=== PATIENT | male | born 1945 | race Caucasian/White ===

== ENCOUNTER 2023-08-17 10:46 | Outpatient (CLI) | payer MEDICARE, OTHER, SELFPAY | END 2023-08-17 10:47 | disposition home or self-care (01) | PROVIDERS: PCP Family Medicine; Visit Provider Family Medicine | DX: E78.5 Hyperlipidemia, unspecified (principal); D64.9 Anemia, unspecified; Z13.1 Encounter for screening for diabetes mellitus | CPT/HCPCS: 80048; 80061 ==

== ENCOUNTER 2023-09-12 09:35 | Outpatient (CLI) | payer MEDICARE, OTHER, SELFPAY | END 2023-09-12 09:36 | disposition home or self-care (01) | LOC: NFLDREF 09-16 15:23 | PROVIDERS: PCP Family Medicine; Referring Provider Family Medicine; Visit Provider Internal Medicine Cardiovascular Disease | DX: I48.0 Paroxysmal atrial fibrillation (principal) | CPT/HCPCS: 80048 ==

== ENCOUNTER 2023-09-26 09:43 | Outpatient (CLI) | payer MEDICARE, OTHER, SELFPAY ==
--- NOTE | 2023-09-26 10:00 | CRLHL7_ITS ---
For Patients: As a result of the Century Cures Act, medical imaging exams and procedure reports are released immediately into your electronic medical record. You may view this report before your referring provider. If you have questions, please contact your health care provider. Indication: FOLLOW UP THORACIC AORTIC ANEURYSM Technique: Noncontrast CT chest Please note that all CT scans at this facility use dose modulation, iterative reconstruction, and/or weight-based dosing when appropriate to reduce radiation dose to as low as reasonably achievable. Comparison: 12/01/2020 Findings: Small layering stones in the gallbladder. Stable left adrenal adenoma. Hiatal hernia measures 9.4 cm. Atherosclerotic changes. No suspicious thyroid lesion. No enlarged lymph nodes. Chronic wedging lower thoracic spine. No acute fracture. Ascending aorta measures 4.2 cm, unchanged. No pericardial effusion. Interval development of tree-in-bud opacities in the posterior aspect right lower lobe. Impression: Stable size and morphology of the ascending aorta which measures up to 4.2 cm, as before. Interval development of mild infiltrate in the posterior right lower lobe. Please note that all CT scans at this facility use dose modulation, iterative reconstruction, and/or weight-based dosing when appropriate to reduce radiation dose to as low as reasonably achievable. Dictated by Buddy Shi MD @ 09/27/2023 12:37:37 PM (Electronically Signed)
== END 2023-09-26 09:44 | disposition home or self-care (01) ==
PROVIDERS: PCP Family Medicine; Visit Provider Family Medicine
DX: I77.810 Thoracic aortic ectasia (principal)
CPT/HCPCS: 71250

== ENCOUNTER 2024-02-21 11:56 | Outpatient (CLI) | payer MEDICARE, OTHER, SELFPAY ==
--- OUTSIDE RECORDS SUMMARY | 2024-02-21 12:00 | XMS_ITS | Clinical Summary ---
Author Name Unknown Organization [facility] Address [place], [place] [address] Care Team Providers Care Collar Cutter Name Role Phone Khari Gonzalez MD Primary Care Provider [phone] Allergies No known active allergies Medications Medication Sig Dispensed Refills Start Date End Date Status (u) ASPIRIN 81 MG TABS once a day ? 0 01/08/2005 Active FOLIC ACID 400 MCG ORAL TAB once a day ? 0 01/08/2005 Active LIPITOR 20 MG ORAL TAB once a day ? 0 01/08/2005 Active MULTIVITAMIN ORAL TAB .qd ? 0 01/08/2005 Active sotaloL (BETAPACE) 80 mg tabletIndications:P aroxysmal atrial fibrillation (HC) Take 1 Tablet (80 mg) by mouth every 12 hours. Due for cardiology appointment 09/14. please call to schedule. 180 Tablet 4 10/01/2022 Active apixaban (Eliquis) 5 mg tabletIndications:P aroxysmal atrial fibrillation (HC) Take 1 Tablet (5 mg) by mouth two times daily. Due for appointment in August, please call now to schedule. 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 Relation Name Status Comments Other Social History Tobacco Use Types Packs/Day Years Used Date Smoking Tobacco: Never Assessed Cigarettes Comments:Quit smokin Social Connections Answer Date Recorded Frequency of Communication with Friends and Fami ly Not on file 10/24/2021 Financial Resource Strain Answer Date R ecorded Difficulty of Paying Living Expenses Not on file 10/24/2021 Difficulty of Paying Living Expenses Not on file 10/24/2021 Sex and Gender Information Value Date Recorded Sex Assigned at Not on file Gender Identity Not on file Sexual Orientation Not on file Obstetrics History Last Filed Vital Signs Vital Sign Reading Time Taken Comments Blood Pressure - - Pulse 73 01/08/2005 12:00 AM SUPERVISOR GARMENT MANUFACTURING Temperature - - Respiratory Rate - - Oxygen Saturation 96% 01/08/2005 12: 00 AM SUPERVISOR GARMENT MANUFACTURING Inhaled Oxygen Concentration - - Weight 101.8 kg (224 lb 6.4 oz) 005 12:00 AM SUPERVISOR GARMENT MANUFACTURING Height 177.8 cm (5' 10) 01/08/2005 12: 00 AM SUPERVISOR GARMENT MANUFACTURING Body Mass Index 32.2 01/08/2005 12:00 AM SUPERVISOR GARMENT MANUFACTURING Plan of Treatment Health Maintenance Due Date Last Done Comments Tdap 1958 Depression screening for age 12+ 1959 BMI (ht and wt on same day) for age 18+ 1965 Hepatitis C screening for ag e 18-79 1965 Tetanus booster 1967 Zoster (shingles) series for age 50+ (1 of 2) 1997 Medicare Wellness for age 65+ 2012 Pneumococcal series for age 65+ (1 of 1 - PCV) 2012 Influenza for age 65+ 06/24/2024 COVID-19 vaccine series Completed 08/18/20, 11/06/2021, 01/06/2021, Additional history exists Care Teams Collar Cutter Relationship Specialty Start Date End Date Khari Gonzalez MD PCP - General Family Practice 03/25/21
== END 2024-02-21 11:57 | disposition home or self-care (01) ==
PROVIDERS: PCP Family Medicine; Visit Provider Family Medicine
DX: R06.09 Other forms of dyspnea (principal); D64.9 Anemia, unspecified
CPT/HCPCS: 80048; 82607; 84443

== ENCOUNTER 2024-03-05 10:00 | Outpatient (CLI) | payer MEDICARE, OTHER, SELFPAY ==
--- OUTSIDE RECORDS SUMMARY | 2024-03-05 10:05 | XMS_ITS | Clinical Summary ---
Author Name Unknown Organization [facility] Address [place], [place] [address] Care Team Providers Care Talent Acquisition Associate Name Role Phone Khari Gonzalez MD Primary Care Provider [phone] Allergies No known active allergies Medications Medication [...] - - Pulse 73 01/08/2005 12:00 AM COMPRESSION MOLDING MACHINE OPERATOR Temperature - - Respiratory Rate - - Oxygen Saturation 96% 01/08/2005 12: 00 AM COMPRESSION MOLDING MACHINE OPERATOR Inhaled Oxygen Concentration - - Weight 101.8 kg (224 lb 6.4 oz) 005 12:00 AM COMPRESSION MOLDING MACHINE OPERATOR Height 177.8 cm (5' 10) 01/08/2005 12: 00 AM COMPRESSION MOLDING MACHINE OPERATOR Body Mass Index 32.2 01/08/2005 12:00 AM COMPRESSION MOLDING MACHINE OPERATOR Plan of Treatment Health Maintenance Due Date [...] 11/06/2021, 01/06/2021, Additional history exists Care Teams Talent Acquisition Associate Relationship Specialty Start Date End Date Khari Gonzalez MD PCP - General Family Practice 03/25/21
== END 2024-03-05 10:01 | disposition home or self-care (01) ==
LOC: LKVREF 10:01
PROVIDERS: PCP Family Medicine; Visit Provider Family Medicine
DX: R60.0 Localized edema (principal)
CPT/HCPCS: 80048

== ENCOUNTER 2024-03-07 08:28 | Outpatient (CLI) | payer MEDICARE, OTHER, SELFPAY ==
--- OUTSIDE RECORDS SUMMARY | 2024-03-07 08:30 | XMS_ITS | Clinical Summary ---
Author Name Unknown Organization [facility] [employer] [facility] Address [place], [place] [address] Care Team Providers Care Baker Name Role Phone Khari Gonzalez MD Primary Care Provider [phone] Allergies No known active allergies Medications Medication [...] - - Pulse 73 01/08/2005 12:00 AM SOAP CHIPPER Temperature - - Respiratory Rate - - Oxygen Saturation 96% 01/08/2005 12: 00 AM SOAP CHIPPER Inhaled Oxygen Concentration - - Weight 101.8 kg (224 lb 6.4 oz) 005 12:00 AM SOAP CHIPPER Height 177.8 cm (5' 10) 01/08/2005 12: 00 AM SOAP CHIPPER Body Mass Index 32.2 01/08/2005 12:00 AM SOAP CHIPPER Plan of Treatment Upcoming Encounters Date Type Department Care Team (Late st Contact Info) Description 03/07/2024 9:00 AM CDT Ancillary Procedure [facility] [address] [place] [address] Health Maintenance Due Date Last Done Comments [...] 11/06/2021, 01/06/2021, Additional history exists Care Teams Baker Relationship Specialty Start Date End Date Khari Gonzalez MD PCP - General Family Practice 03/25/21
== END 2024-03-07 08:29 | disposition home or self-care (01) ==
LOC: RAD 08:29
PROVIDERS: PCP Family Medicine; Visit Provider Family Medicine
DX: R06.09 Other forms of dyspnea (principal); I51.7 Cardiomegaly
CPT/HCPCS: 93306

== ENCOUNTER 2024-05-25 09:50 | Outpatient (CLI) | payer MEDICARE, OTHER, SELFPAY ==
--- OUTSIDE RECORDS SUMMARY | 2024-05-28 08:42 | XMS_ITS | Clinical Summary ---
Author Organization [facility] Address [place], [place] [address] Care Team Providers Care Press Tender Name Role Phone Khari Reyes MD Primary Care Provider [phone] [phone] Allergies No known active allergies Medications Medication [...] L [place] 1988 HYPERLIPIDEMIA PATENT FORAMEN OVALE Encounters Date Type Department Care Team Description 05/07/2024 Orders Only [facility] [address] [place] [address] Mari Sandoval MD 1 scan: (1-Ord) ZIO REPORT 04/19/2024 10:30 AM CDT Office Visit [facility] [address] [place] [address] Mari Sandoval MD 03/07/2024 9:00 AM CDT Ancillary Procedure [facility] [address] [place] [address] 03/07/2024 Travel from Last 3 Months Family History Medical History Relation Name Comments [...] - - Pulse 73 01/08/2005 12:00 AM SPEAR FISHER Temperature - - Respiratory Rate - - Oxygen Saturation 96% 01/08/2005 12: 00 AM SPEAR FISHER Inhaled Oxygen Concentration - - Weight 101.8 kg (224 lb 6.4 oz) 005 12:00 AM SPEAR FISHER Height 177.8 cm (5' 10) 01/08/2005 12: 00 AM SPEAR FISHER Body Mass Index 32.2 01/08/2005 12:00 AM SPEAR FISHER Plan of Treatment Health Maintenance Due Date Last Done Comments Pneumococcal series for age 65+ (1 of 2 - PCV) 1953 Tdap 1958 Depression screening for age 12+ 1959 BMI (ht and wt on same day) for age 18+ 1965 Hepatitis C screening for ag e 18-79 1965 Tetanus booster 1967 Zoster (shingles) series for age 50+ (1 of 2) 1997 Medicare Wellness for age 65+ 2012 COVID-19 vaccine series (2022-24 season) 2023 08/18/2023, 11/06/2021, 01/06/2021, Additional history exists Influenza for age 65+ 06/24/2024 Procedures Procedure Name Priority Date/Time Associated Diagnosis Comments EXTENDED HOLTER Routine 05/22/2024 Chronic atrial fibrillation (HC) ECHO TTE COMPLETE WO CONTRAST Routine 03/07/2024 9:49 AM CDT Other forms of dyspnea from Last 3 Months Results * EXTENDED HOLTER (05/22/2024) Mari Sandoval MD CARDIAC SERVICES ORD * ECHO TTE COMPLETE WO CONTRAST (03/07/2024 9:49 AM CDT) AORTIC VALVE MEAN PG 5 mmHg EJECTION FRACTION 51 % PEAK TR VELOCITY 2.4 m/s LVEDD 5.3 cm EJECTION FRACTION 55 - 60% Anatomical Region Laterality Modality Ultrasound 03/07/2024 9:22 AM CDT Narrative 03/07/2024 10:14 AM CDT ECHOCARDIOGRAM ERIN SANTIAGO ?Accession#: ?? [id number] : ?1945 78 years Study Date: ?? 03/07/2024 9:22:51 AM Gender: M ? BP: ? 145/84 mmHg Height: 177.80 cm ? BSA: ?2.19 m? ? ? Weight: 102.00 kg ? Tech: ? MSR ?Referring MD: KHARI REYES Site: ? [facility] Reading Location: Mobile OP Patient Location: Outpatient. Procedure: 2D, Color Doppler and Spectral Doppler. Indication for study: Other forms of dyspnea Cardiac Rhythm: Irregular.Study quality: Fair. Final Impressions: 1. Normal LV size, normal wall thickness, normal global systolic function with an estimated EF of 55 - 60%. 2. Right ventricular cavity size is normal, global systolic RV function is normal. 3. Severely enlarged left atrium. 4. The inferior vena cava is dilated, respiratory size variation less than 50%, consistent with elevated right atrial pressure. Chamber Sizes and Function Normal left ventricular size, normal wall thickness, normal global systolic function with an estimated EF of 55 - 60%. Left atrial size is severely enlarged. Right ventricular cavity size is normal, global systolic RV function is normal. The right atrium is mildly enlarged. The pulmonary artery is not well visualized. The sinus of Valsalva is normal sized. The ascending aorta is normal sized. Valves, RV Pressures and Diastolic Function The aortic valve is trileaflet, no stenosis and trivial regurgitation. The mitral valve is normal in structure, trace mitral regurgitation. Indeterminate pattern of LV diastolic filling. The tricuspid valve is normal in structure. Tricuspid regurgitation is mild regurgitation. The tricuspid regurgitant velocity is 2.4 m/s, the estimated right ventricular systolic pressure is 23 mmHg plus right atrial pressure. The pulmonic valve is not well visualized. Unable to determine pulmonary regurgitation. Masses, Effusion, Shunts There is no pericardial effusion. The inferior vena cava is dilated, respiratory size variation less than 50%, consistent with elevated right atrial pressure. No left to right shunting was detected by limited color flow Doppler interrogation of the interatrial septum. MEASUREMENTS AND CALCULATIONS 2-D Measurements and LV Function: LVID (d) 5.3 cm LV FS% (2D) ?? 34 % LVID (s) 3.5 cm LVOT diameter 2.3 cm IVS (d) ??1.1 cm HR ?66 bpm LVPW (d) 1.1 cm LA Vol index ??76 ml/m2 Ao Sinus 3.3 cm RV Max 4C (d) 5.3 cm Asc Ao ?? 3.8 cm Diastology: Mitral ?Tissue Doppler E Peak 1.0 m/s ??e', Septum ? 0.10 m/s DT ? 156 msec e', Lateral ?0.11 m/s ?E/e' Average ?? 9.05 Aortic Valve: Vmax ? 1.4 m/s ??MARA (V) ?? 2.42 cm? ? ? VTI ?0.32 m ?? MARA (I) ?? 2.43 cm? ? ? LVOT V max 0.9 m/s ??Max PG ?8 mmHg LVOT VTI ?? 0.19 m ?? Mean PG ?? 5 mmHg SV ? 77 ml ?Dim Index 0.61 SV index ?? 35 ml/m? ? ? CO ?5.1 l/min ?CI ?2.3 l/min/m? ? ? Mitral Valve: MVA ?4.9 cm? ? ? MV P 1/2 45 msec Tricuspid Valve and estimated PA pressures: TR Vmax 2.4 m/s TAPSE 2.0 cm TR maxG 23 mmHg . This study was interpreted by an [facility] accredited facility. CC: HIM ([facility]) [facility]. ??Final ?? Procedure Note Buddy Ramirez MD - 03/07/2024 ECHOCARDIOGRAM ERIN SANTIAGO : 1945 78 years Study Date: 03/07/2024 9:22:51 AM Gender: M BP: 145/84 mmHg Height: 177.80 cm BSA: 2.19 m? ? ? Weight: 102.00 kg Tech: MSR Referring MD: KHARI REYES Site: [facility] Reading Location: Mobile OP Patient Location: Outpatient. Procedure: 2D, Color Doppler and Spectral Doppler. Indication for study: Other forms of dyspnea Cardiac Rhythm: Irregular.Study quality: Fair. Final Impressions: 1. Normal LV size, normal wall thickness, normal global systolic functionwith an estimated EF of 55 - 60%. 2. Right ventricular cavity size is normal, global systolic RV functionis normal. 3. Severely enlarged left atrium. 4. The inferior vena cava is dilated, respiratory size variation lessthan 50%, consistent with elevated right atrial pressure. Chamber Sizes and Function Normal left ventricular size, normal wall thickness, normal globalsystolic function with an estimated EF of 55 - 60%. Left atrial size isseverely enlarged. Right ventricular cavity size is normal, globalsystolic RV function is normal. The right atrium is mildly enlarged. Thepulmonary artery is not well visualized. The sinus of Valsalva is normalsized. The ascending aorta is normal sized. Valves, RV Pressures and Diastolic Function The aortic valve is trileaflet, no stenosis and trivial regurgitation. Themitral valve is normal in structure, trace mitral regurgitation.Indeterminate pattern of LV diastolic filling. The tricuspid valve isnormal in structure. Tricuspid regurgitation is mild regurgitation. Thetricuspid regurgitant velocity is 2.4 m/s, the estimated right ventricularsystolic pressure is 23 mmHg plus right atrial pressure. The pulmonicvalve is not well visualized. Unable to determine pulmonaryregurgitation. Masses, Effusion, Shunts There is no pericardial effusion. The inferior vena cava is dilated,respiratory size variation less than 50%, consistent with elevated rightatrial pressure. No left to right shunting was detected by limited colorflow Doppler interrogation of the interatrial septum. MEASUREMENTS AND CALCULATIONS 2-D Measurements and LV Function: LVID (d) 5.3 cm LV FS% (2D) 34 % LVID (s) 3.5 cm LVOT diameter 2.3 cm IVS (d) 1.1 cm HR 66 bpm LVPW (d) 1.1 cm LA Vol index 76 ml/m2 Ao Sinus 3.3 cm RV Max 4C (d) 5.3 cm Asc Ao 3.8 cm Diastology: Mitral Tissue Doppler E Peak 1.0 m/s e', Septum 0.10 m/s DT 156 msec e', Lateral 0.11 m/s E/e' Average 9.05 Aortic Valve: Vmax 1.4 m/s MARA (V) 2.42 cm? ? ? VTI 0.32 m MARA (I) 2.43 cm? ? ? LVOT V max 0.9 m/s Max PG 8 mmHg LVOT VTI 0.19 m Mean PG 5 mmHg SV 77 ml Dim Index 0.61 SV index 35 ml/m? ? ? CO 5.1 l/min CI 2.3 l/min/m? ? ? Mitral Valve: MVA 4.9 cm? ? ? MV P 1/2 45 msec Tricuspid Valve and estimated PA pressures: TR Vmax 2.4 m/s TAPSE 2.0 cm TR maxG 23 mmHg . This study was interpreted by an [facility] accredited facility. CC: [facility] (med records) [facility]. Final Khari Reyes MD ECHO ORD from Last 3 Months Care Teams Press Tender Relationship Specialty Start Date End Date Khari Reyes MD PCP - General Family Practice 03/25/21
== END 2024-05-25 09:51 | disposition home or self-care (01) ==
LOC: NFLDREF 05-28 08:40
PROVIDERS: PCP Family Medicine; Referring Provider Family Medicine; Visit Provider Family Medicine
DX: D64.9 Anemia, unspecified (principal)
CPT/HCPCS: 83540; 83550

== ENCOUNTER 2024-07-23 08:31 | Outpatient (CLI) | payer MEDICARE, OTHER, SELFPAY ==
--- OUTSIDE RECORDS SUMMARY | 2024-07-23 08:34 | XMS_ITS | Clinical Summary ---
Author Organization [facility] Address [place], [place] [address] Care Team Providers Care Rn Hemodialysis Name Role Phone Khari Gonzalez MD Primary Care Provider [phone] Allergies No known active allergies Medications Medication [...] Encounters Date Type Department Care Team Description 07/06/2024 Telephone [employer] [facility] [place] [facility] [address] [place] [address] Mari Sandoval MD Imaging 05/07/2024 Orders Only [facility] [address] [place] [address] Mari Sandoval MD 1 scan: (1-Ord) ZIO REPORT from Last 3 Months Family History Medical [...] - - Pulse 73 01/08/2005 12:00 AM CLOTH BALE HEADER Temperature - - Respiratory Rate - - Oxygen Saturation 96% 01/08/2005 12: 00 AM CLOTH BALE HEADER Inhaled Oxygen Concentration - - Weight 101.8 kg (224 lb 6.4 oz) 005 12:00 AM CLOTH BALE HEADER Height 177.8 cm (5' 10) 01/08/2005 12: 00 AM CLOTH BALE HEADER Body Mass Index 32.2 01/08/2005 12:00 AM CLOTH BALE HEADER Plan of Treatment Upcoming Encounters Date Type Department Care Team (Late st Contact Info) Description 07/23/2024 9:00 AM CDT Ancillary Procedure [facility] [place] [facility] [address] [place] [address] Health Maintenance Due Date Last Done Comments [...] 1997 Medicare Wellness for age 65+ 2012 RSV vaccine for adults or (1 - 1-dose 75+ series) 2022 COVID-19 vaccine series ( season) 2024 08/18/2023, 11/06/2021, 01/06/2021, Additional history exists Influenza for age 65+ 06/24/2024 Procedures Procedure Name Priority Date/Time Associated Diagnosis Comments EXTENDED HOLTER Routine 05/22/2024 Chronic atrial fibrillation (HC) from Last 3 Months Results * EXTENDED HOLTER (05/22/2024) Mari Sandoval MD CARDIAC SERVICES ORD from Last 3 Months Care Teams Rn Hemodialysis Relationship Specialty Start Date End Date Khari Gonzalez MD PCP - General Family Practice 03/25/21
== END 2024-07-23 08:32 | disposition home or self-care (01) ==
PROVIDERS: PCP Family Medicine; Visit Provider Internal Medicine
DX: I48.0 Paroxysmal atrial fibrillation (principal); I51.7 Cardiomegaly; I34.0 Nonrheumatic mitral (valve) insufficiency; I07.1 Rheumatic tricuspid insufficiency
CPT/HCPCS: 93306

== ENCOUNTER 2024-09-03 09:21 | Outpatient (CLI) | payer MEDICARE, OTHER, SELFPAY ==
--- OUTSIDE RECORDS SUMMARY | 2024-09-03 09:27 | XMS_ITS | Clinical Summary ---
Author Organization [facility] Address [place], [place] [address] Care Team Providers Care Electric Sign Wirer Name Role Phone Khari Gonzalez MD Primary Care Provider [phone] Allergies No known active allergies Medications Medication [...] Encounters Date Type Department Care Team Description 07/23/2024 9:00 AM CDT Ancillary Procedure [facility] [address] [place] [address] 07/23/2024 Telephone [facility] [address] [place] [address] Mari Be MD Results (Echo 07/23/24) 07/23/2024 Travel 07/06/2024 Telephone [facility] [place] [facility] [address] [place] [address] Mari Be MD Imaging from Last 3 Months Family History Medical [...] - - Pulse 73 01/08/2005 12:00 AM CARDIOVASCULAR TECH Temperature - - Respiratory Rate - - Oxygen Saturation 96% 01/08/2005 12: 00 AM CARDIOVASCULAR TECH Inhaled Oxygen Concentration - - Weight 101.8 kg (224 lb 6.4 oz) 005 12:00 AM CARDIOVASCULAR TECH Height 177.8 cm (5' 10) 01/08/2005 12: 00 AM CARDIOVASCULAR TECH Body Mass Index 32.2 01/08/2005 12:00 AM CARDIOVASCULAR TECH Plan of Treatment Health Maintenance Due Date [...] Procedure Name Priority Date/Time Associated Diagnosis Comments ECHO TTE COMPLETE WO CONTRAST Routine 07/23/2024 9:58 AM CDT Paroxysmal A-fib (HC) from Last 3 Months Results * ECHO TTE COMPLETE WO CONTRAST (07/23/2024 9:58 AM CDT) AORTIC VALVE MEAN PG 3 mmHg EJECTION FRACTION 58 % PEAK TR VELOCITY 2.4 m/s LVEDD 4.7 cm EJECTION FRACTION 55 - 60% Anatomical Region Laterality Modality Ultrasound 07/23/2024 9:12 AM CDT Narrative 07/23/2024 11:58 AM CDT ECHOCARDIOGRAM ERIN SANTIAGO ?Accession#: ?? [id number] : ?1945 78 years Study Date: ?? 07/23/2024 9:12:40 AM Gender: M ? BP: ? 132/73 mmHg Height: 178.00 cm ? BSA: ?2.28 m? ? ? Weight: 111.00 kg ? Tech: ? MTS ?Referring MD: MARI BE Site: ? [facility] Reading Location: MOBILE OP Patient Location: Outpatient. Procedure: 2D, Color Doppler and Spectral Doppler. Indication for study: Paroxysmal A-fib (HC) Cardiac Rhythm: Irregular.Study quality: Good. Final Impressions: 1. Normal left ventricular size, mildly increased wall thickness, normal global systolic function, calculated EF of 58 %. 2. Right ventricular cavity size is normal, global systolic RV function is normal. 3. Severely enlarged left atrium. 4. The aortic valve is normal and trileaflet, no stenosis and no regurgitation. 5. The mitral valve is sclerotic, trace mitral regurgitation. 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 Moderate-severe tricuspid regurgitation. 8. 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 9. Normal estimated pulmonary pressures by tricuspid regurgitation velocity and right atrial pressure (23 mmHg plus RAP). 10. No pericardial effusion. Chamber Sizes and Function Normal left ventricular size, mildly increased wall thickness, normal global systolic function, calculated EF of 58 %. Left atrial size is severely enlarged. Right ventricular cavity size is normal, global systolic RV function is normal. RV wall thickness is normal. The right atrium is moderately enlarged. Right atrial volume index is 42 ml/m? ? ?. Right atrial area is 29 cm? ? ?. The pulmonary artery is of normal size and origin. The sinus of Valsalva is normal sized. The ascending aorta is dilated. Valves, RV Pressures and Diastolic Function The aortic valve is normal in structure and trileaflet, no stenosis and no regurgitation. The mitral valve is sclerotic, trace mitral regurgitation. Indeterminate pattern of LV diastolic filling. The tricuspid valve is myxomatous. Tricuspid regurgitation is moderate-severe. The tricuspid regurgitant velocity is 2.4 m/s, the estimated right ventricular systolic pressure is 23 mmHg plus right atrial pressure. There is normal estimated pulmonary pressure by tricuspid regurgitation velocity and right atrial pressure. The pulmonic valve is normal. Trace pulmonary regurgitation. Masses, Effusion, Shunts There is no pericardial effusion. The inferior vena cava is dilated, respiratory size variation less than 50%, consistent with elevated right atrial pressure. No left to right shunting was detected by limited color flow Doppler interrogation of the interatrial septum. MEASUREMENTS AND CALCULATIONS 2-D Measurements and LV Function: LVID (d) 4.7 cm Planimetered EF 58 % LVID (s) 3.3 cm LV FS% (2D) ? 29 % IVS (d) ??1.2 cm LVOT diameter ?? 2.4 cm LVPW (d) 1.1 cm HR ?65 bpm Ao Sinus 3.5 cm LA Vol index ?68 ml/m2 Asc Ao ?? 4.1 cm RA Vol index ?42 ml/m2 ?RA area ? 29 cm? ? ? Diastology: Mitral E Peak 0.9 m/s DT ? 234 msec Aortic Valve: Vmax ? 1.2 m/s ??MARA (V) ?? 3.71 cm? ? ? VTI ?0.27 m ?? MARA (I) ?? 3.45 cm? ? ? LVOT V max 1.0 m/s ??Max PG ?5 mmHg LVOT VTI ?? 0.21 m ?? Mean PG ?? 3 mmHg SV ? 92 ml ?Dim Index 0.77 SV index ?? 41 ml/m? ? ? CO ?6.0 l/min ?CI ?2.6 l/min/m? ? ? Mitral Valve: MVA ?3.2 cm? ? ? MV P 1/2 68 msec Tricuspid Valve and estimated PA pressures: TR Vmax 2.4 m/s TAPSE 1.6 cm TR maxG 23 mmHg . This study was interpreted by an [facility] accredited facility. CC: [facility] ([facility]) [facility] ??Final ?? Procedure Note Malka Crook, [facility] - 07/23/2024 ECHOCARDIOGRAM ERIN SANTIAGO : 1945 78 years Study Date: 07/23/2024 9:12:40 AM Gender: M BP: 132/73 mmHg Height: 178.00 cm BSA: 2.28 m? ? ? Weight: 111.00 kg Tech: MTS Referring MD: MARI BE Site: [facility] Reading Location: MOBILE OP Patient Location: Outpatient. Procedure: 2D, Color Doppler and Spectral Doppler. Indication for study: Paroxysmal A-fib (HC) Cardiac Rhythm: Irregular.Study quality: Good. Final Impressions: 1. Normal left ventricular size, mildly increased wall thickness, normalglobal systolic function, calculated EF of 58 %. 2. Right ventricular cavity size is normal, global systolic RV functionis normal. 3. Severely enlarged left atrium. 4. The aortic valve is normal and trileaflet, no stenosis and noregurgitation. 5. The mitral valve is sclerotic, trace mitral regurgitation. 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 Moderate-severe tricuspid regurgitation. 8. 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 9. Normal estimated pulmonary pressures by tricuspid regurgitationvelocity and right atrial pressure (23 mmHg plus RAP). 10. No pericardial effusion. Chamber Sizes and Function Normal left ventricular size, mildly increased wall thickness, normalglobal systolic function, calculated EF of 58 %. Left atrial size isseverely enlarged. Right ventricular cavity size is normal, globalsystolic RV function is normal. RV wall thickness is normal. The rightatrium is moderately enlarged. Right atrial volume index is 42 ml/m? ? ?.Right atrial area is 29 cm? ? ?. The pulmonary artery is of normal size andorigin. The sinus of Valsalva is normal sized. The ascending aorta isdilated. Valves, RV Pressures and Diastolic Function The aortic valve is normal in structure and trileaflet, no stenosis and noregurgitation. The mitral valve is sclerotic, trace mitral regurgitation.Indeterminate pattern of LV diastolic filling. The tricuspid valve ismyxomatous. Tricuspid regurgitation is moderate-severe. The tricuspidregurgitant velocity is 2.4 m/s, the estimated right ventricular systolicpressure is 23 mmHg plus right atrial pressure. There is normal estimatedpulmonary pressure by tricuspid regurgitation velocity and right atrialpressure. The pulmonic valve is normal. Trace pulmonary regurgitation. Masses, Effusion, Shunts There is no pericardial effusion. The inferior vena cava is dilated,respiratory size variation less than 50%, consistent with elevated rightatrial pressure. No left to right shunting was detected by limited colorflow Doppler interrogation of the interatrial septum. MEASUREMENTS AND CALCULATIONS 2-D Measurements and LV Function: LVID (d) 4.7 cm Planimetered EF 58 % LVID (s) 3.3 cm LV FS% (2D) 29 % IVS (d) 1.2 cm LVOT diameter 2.4 cm LVPW (d) 1.1 cm HR 65 bpm Ao Sinus 3.5 cm LA Vol index 68 ml/m2 Asc Ao 4.1 cm RA Vol index 42 ml/m2 RA area 29 cm? ? ? Diastology: Mitral E Peak 0.9 m/s DT 234 msec Aortic Valve: Vmax 1.2 m/s MARA (V) 3.71 cm? ? ? VTI 0.27 m MARA (I) 3.45 cm? ? ? LVOT V max 1.0 m/s Max PG 5 mmHg LVOT VTI 0.21 m Mean PG 3 mmHg SV 92 ml Dim Index 0.77 SV index 41 ml/m? ? ? CO 6.0 l/min CI 2.6 l/min/m? ? ? Mitral Valve: MVA 3.2 cm? ? ? MV P 1/2 68 msec Tricuspid Valve and estimated PA pressures: TR Vmax 2.4 m/s TAPSE 1.6 cm TR maxG 23 mmHg . This study was interpreted by an [facility] accredited facility. CC: [facility] (med records) [facility] Final Mari Be MD ECHO ORD from Last 3 Months Care Teams Electric Sign Wirer Relationship Specialty Start Date End Date Khari Gonzalez MD PCP - General Family Practice 03/25/21
== END 2024-09-03 09:22 | disposition home or self-care (01) ==
PROVIDERS: PCP Family Medicine; Visit Provider Family Medicine
DX: Z00.00 Encounter for general adult medical examination without abnormal findings (principal); E78.5 Hyperlipidemia, unspecified; D64.9 Anemia, unspecified; R60.9 Edema, unspecified
CPT/HCPCS: 80048; 80061

== ENCOUNTER 2024-10-14 19:15 | Outpatient (CLI) | payer MEDICARE, OTHER, SELFPAY ==
--- NOTE | 2024-11-06 09:54 | W.PM.SLEEP ---
Sleep Study Details Details Interpreting Provider: Susan Date of Sleep Study: 10/14/24 Sleep Study Details: STUDY TYPE:? Home unattended ? BMI:? 36.3 ORDERING PROVIDER:? Susan INDICATION:? Concern about sleep apnea ? SLEEP SUMMARY:? 577 minutes monitored RESPIRATORY SUMMARY:? AHI 49.2 Low oxygen 70 67.6% of study oxygen less than 90% Snoring 86.4% PERIODIC LIMB MOVEMENTS OF SLEEP:? Not recorded CARDIAC:? Range 47-109, mean 75.4 beats per minute IMPRESSION:? Severe obstructive sleep apnea with significant hypo oxygenation RECOMMENDATION: In-lab titration versus AutoSet CPAP. Once effective therapy is established an overnight oximetry should be performed to determine if the patient would benefit from nocturnal oxygen.
== END 2024-10-14 19:16 | disposition home or self-care (01) ==
PROVIDERS: PCP Family Medicine; Visit Provider Otolaryngology
DX: G47.33 Obstructive sleep apnea (adult) (pediatric) (principal)
CPT/HCPCS: 95806

== ENCOUNTER 2025-01-31 12:37 | Outpatient (CLI) | payer MEDICARE, OTHER, SELFPAY | END 2025-01-31 12:38 | disposition home or self-care (01) | LOC: RAD 12:37 | PROVIDERS: PCP Family Medicine; Visit Provider Internal Medicine | DX: I48.19 Other persistent atrial fibrillation (principal); I51.7 Cardiomegaly; I34.0 Nonrheumatic mitral (valve) insufficiency; I07.1 Rheumatic tricuspid insufficiency | CPT/HCPCS: 93306 ==

== ENCOUNTER 2025-05-06 09:44 | Outpatient (CLI) | payer MEDICARE, OTHER, SELFPAY | END 2025-05-06 09:45 | disposition home or self-care (01) | PROVIDERS: PCP Family Medicine; Visit Provider Nurse Practitioner | DX: I07.1 Rheumatic tricuspid insufficiency (principal) | CPT/HCPCS: 93308; 93321; 93325 ==

== ENCOUNTER 2025-09-24 09:29 | Outpatient (CLI) | payer MEDICARE, OTHER, SELFPAY | END 2025-09-24 09:30 | disposition home or self-care (01) | PROVIDERS: PCP Family Medicine; Visit Provider Family Medicine | DX: I48.19 Other persistent atrial fibrillation (principal); E78.2 Mixed hyperlipidemia; Z12.5 Encounter for screening for malignant neoplasm of prostate | CPT/HCPCS: 80048; 80061; G0103 ==